=== PATIENT | female | born 1960 | race Caucasian/White ===

== ENCOUNTER 2021-03-27 11:17 | Emergency (ER) | payer BC ==
[~2021-03-27] VITALS: Ht 165.1 cm; Wt 79.4 kg
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
--- NOTE | 2021-03-27 12:05 | NUR ---
RADIOLOGY AT BEDSIDE
[2021-03-27] MEDS ORDERED: IBUP-1955 PO (12:54)
--- NOTE | 2021-03-27 13:10 | NUR ---
Patient discharged to home in stable condition. Written and verbal after care instructions given. Patient verbalizes understanding of instruction.
[2021-03-27 13:11] VITALS: BP 110/66
== END 2021-03-27 13:12 | disposition home or self-care (01) ==
LOC: ER 11:19
DX: S20.213A Contusion of bilateral front wall of thorax, initial encounter (principal); R00.2 Palpitations; E03.9 Hypothyroidism, unspecified; Z79.899 Other long term (current) drug therapy; V49.59XA Passenger injured in collision with other motor vehicles in traffic accident, initial encounter; Y93.89 Activity, other specified; Y92.488 Other paved roadways as the place of occurrence of the external cause; Y99.8 Other external cause status
CPT/HCPCS: 71045-TC